=== PATIENT | female | born 1970 | race Caucasian/White ===

== ENCOUNTER 2019-11-27 08:16 | Emergency (ER) | payer OTHER, SELFPAY ==
[2019-11-27] VITALS (13 sets, daily range): BP systolic 120–147; BP diastolic 86–103; PULSE 62–74; RESP 11–22; TEMP 36.8; O2SAT 96–100
--- NOTE | ~2019-11-27 | CT_ITS ---
EXAMINATION: CT thoracic spine wo con DATE: 11/27/2019 09:33 INDICATION: Back pain. TECHNIQUE: Computed tomography (CT) of the thoracic spine was performed without intravenous contrast. Automated exposure control and iterative reconstruction technique were employed. The dose-length pro duct was 270.16 mGy-cm. COMPARISON: Chest 2 views 11/27/2019 FINDINGS: Bone alignment is normal. Vertebral body heights are normal. There is mildly decreased disc height from T5-T6 through T9-T10. There are endplate osteophytes at most levels. There is multilevel mild facet joint osteoarthritis. No neural foraminal stenosis or central canal stenosis. IMPRESSION: 1. Mild thoracic spondylosis. Reviewed, dictated and finalized at location A.
--- NOTE | ~2019-11-27 | XR_ITS ---
XR chest 2V DATE: 11/27/2019 09:36 INDICATION: Pleuritic pain, back pain. TECHNIQUE: PA and lateral views COMPARISON: 07/05/2017 PA and lateral chest FINDINGS: Normal heart size. No hilar or mediastinal enlargement. No pulmonary infiltrate or consolid ation, pleural effusion or pulmonary vascular congestion or pneumothorax. IMPRESSION: No active cardiopulmonary disease Reviewed, dictated and finalized at location B.
--- NOTE | ~2019-11-27 | CT_ITS ---
EXAMINATION: CT cervical spine wo con DATE: 11/27/2019 09:34 INDICATION: Back pain. Spinal stenosis. TECHNIQUE: Computed tomography (CT) of the cervical spine was performed without intravenous contrast. Automated exposure control and iterative reconstruction technique were employed. The dose-length pro duct was 118.29 mGy-cm. COMPARISON: None FINDINGS: Mild reversal of the normal lordosis in the lower cervical spine. Vertebral body heights are normal. Schmorl's node along the superior endplate of C7. No fracture. Moderate disc height loss at C5-C6 and C6-C7. Mild disc height loss at C4-C5. Cervical soft tissues are unremarkable. Small pneumatocele al marissa the paramediastinal left apical segment. The following disc levels are specifically discussed: C2-C3: The disc does not extend beyond the endplate margin. There is mild bilateral uncovertebral alonso nt osteoarthritis. There is severe bilateral facet joint osteoarthritis. There is no neural foraminal stenosis. There is no central canal stenosis. C3-C4: The disc does not extend beyond the endplate margin. There is mild right and moderate left unc overtebral joint osteoarthritis. There is moderate right and severe left facet joint osteoarthritis. There is mild left neural foraminal stenosis. There is no central canal stenosis. C4-C5: Disc is mildly bulging. There is mild bilateral uncovertebral joint osteoarthritis. There is s evere bilateral facet joint osteoarthritis. There is altered left and moderate right neural foraminal stenosis. There is no central canal stenosis. C5-C6: Posterior disc osteophyte complex. There is severe bilateral uncovertebral joint osteoarthriti s. There is moderate bilateral facet joint osteoarthritis. There is moderate left and mild to moderat e right neural foraminal stenosis. There is mild central canal stenosis. C6-C7: Posterior disc osteophyte complex. There is mild right and moderate to severe left uncovertebr al joint osteoarthritis. There is mild left and moderate right facet joint osteoarthritis. There is m ild bilateral neural foraminal stenosis. There is mild central canal stenosis. C7-T1: The disc does not extend beyond the endplate margin. There is no uncovertebral joint osteoarth ritis. There is mild left facet joint osteoarthritis. There is no neural foraminal stenosis. There is no central canal stenosis. IMPRESSION: 1. Moderate cervical spondylosis. No acute osseous abnormality. Reviewed, dictated and finalized at location A.
[2019-11-27 08:41] LABS: Add Urine Microscopic? NO; Appearance Urine Clear (Clear); Bilirubin Urine Negative (Negative); Blood Urine Negative (Negative); Color Urine Colorless (Yellow); Glucose Urine UA Negative (Negative); Ketones Urine Negative (Negative); Leukocyte Esterase Ur Negative LEU/UL (Negative); Nitrate Urine Negative (Negative); Protein Urine Negative (Negative); Specific Grav Ur 1.004 (1.001-1.035); Urobilinogen Urine Negative mg/dL (<2.0)
--- NOTE | 2019-11-27 08:52 | ED.BACK ---
HPI - Back Pain/Injury General Chief Complaint: Back Pain/Injury Stated Complaint: back pain, pain w/ inspiration Time Seen by Provider: 11/27/19 08:52 Source: patient and family Mode of arrival: ambulatory Limitations: no limitations History of Present Illness HPI Narrative: Patient is a 49-year-old female who presents for evaluation of back pain. Patient reports upper back pain that she notices most when she takes a deep breath. Pain is sharp, stabbing in nature and worse with inspiration. She denies frontal chest pain, cough, no current shortness of breath. Patient denies leg swelling or pain. No headache. Patient states she has a history of spinal stenosis but denies recent fall, injury or heavy lifting. No weakness in the upper or lower extremities. No hand numbness. No arm numbness. Pain is occasionally worse at movement, sometimes notices it at rest. Describes as a spasm type pain. Related Data Home Medications Medication Instructions Recorded Confirmed cholecalciferol (vitamin D3) 1,250 50,000 unit PO WEEKLY 07/21/19 mcg (50,000 unit) tablet lorazepam 2 mg tablet 2 mg PO DAILY PRN 07/21/19 Allergies Allergy/AdvReac Type Severity Reaction Status Date / Time sulfamethoxazole Allergy Mild Unknown Verified 11/27/19 08:43 cephalexin Allergy Unknown Unknown Verified 11/27/19 08:43 Penicillins Allergy Unknown Unknown Verified 11/27/19 08:43 sulfamethizole Allergy Unknown Unknown Verified 11/27/19 08:43 trimethoprim Allergy Unknown Unknown Verified 11/27/19 08:43 Review of Systems Review of Systems: Narrative: CONSTITUTIONAL: Denies fever CARDIOVASCULAR: Denies chest pain RESPIRATORY: Denies cough, reports pleuritic chest pain GASTROINTESTINAL: Denies abdominal pain, nausea or vomiting SKIN: Denies rash MUSCULOSKELETAL: Reports middle back pain NEUROLOGIC: Denies headache PMFSH Surgical History Surgical History History of endometrial ablation History of tubal ligation Previous section x 2 Family History Family History Father Hypertension Family history of chronic obstructive pulmonary disease Other Family history of malignant neoplasm of male breast Social History Social History Smoking status: Former smoker Second hand tobacco smoke exposure: No Smoking end date: 05/21/12 Alcohol intake: never Gender identity (if verbalized by the patient): Female Sexual Orientation (if Verbalized by the Patient): Straight or Heterosexual Exam Narrative: Exam Narrative: GENERAL: Awake, alert, conversant HEAD: Normocephalic, atraumatic. EYES: PERRLA and EOMI. ENT: Nares clear, no rhinorrhea or epistaxis. Mucous membranes moist. NECK: Supple. CHEST: No respiratory distress, breathing even and non labored THORAX: No cervical spinal tenderness midline or paraspinal, patient with midline thoracic pain and paraspinal pain of the left which partially reproduces pain, no stepoffs or deformities HEART: Regular rate, sinus rhythm ABDOMEN:Non distended, non tender EXTREMITIES: Normal range of motion. No edema. SKIN: Warm, dry, no rash. NEURO:No focal deficits. Alert and oriented x3 Course Vital Signs Vital signs: Vital Signs Temperature 36.8 C 11/27/19 08:25 Pulse Rate 67 11/27/19 08:25 Respiratory Rate 18 11/27/19 08:25 Blood Pressure 147/92 H 11/27/19 08:25 Pulse Oximetry 100 11/27/19 08:25 Temperature 36.8 C 11/27/19 08:25 Pulse Rate 68 11/27/19 10:39 Respiratory Rate 18 11/27/19 10:39 Blood Pressure 125/90 11/27/19 10:39 Pulse Oximetry 100 11/27/19 10:39 MDM - Back Pain/Injury MDM Narrative Medical decision making narrative: Patient presented for reproducible thoracic back pain, there was some type of pleuritic component, the EKG and troponin are reassuring. Troponin is undetected
--- NOTE | 2019-11-27 09:12 | ECG_ITS ---
Measurements Intervals Reading Rate: 64 P: 71 WY: 140 QRS: 40 QRSD: 76 T: 51 QT: 405 QTc: 420 Interpretive Statements SINUS RHYTHM DELAYED PRECORDIAL R/S TRANSITION LOW QRS VOLTAGE IN PRECORDIAL LEADS BORDERLINE ST-T WAVE ABNORMALITY- ANT/INF LEADS BASELINE ARTIFACT- I, III, AVL, V1 BORDERLINE ECG Electronically Signed On 11-27-2019 9:58:18 CDT by Thom Sousa D.O.
[2019-11-27] MEDS: KETOROLAC (*BKC) 60 MG/2 ML VIAL 30 MG IM (09:49)
[2019-11-27 09:52] LABS: Basophils Percent Auto 0.5 % (0.2-1.2); Eosinophils Absolute Auto 0.1 K/mm3 (0-0.3); Hematocrit 39.9 % (37.0-47.0); Hemoglobin 13.5 g/dL (12.0-15.0); Lymphocytes Absolute Auto 1.38 K/mm3 (0.9-3.2); Lymphocytes Percent Auto 34.2 % (18.3-44.2); Mean Corpuscular HGB Conc 33.8 g/dl (32-36); Mean Corpuscular Hemoglobin 32.2 pg (26-34); Mean Corpuscular Volume 95.2 fl (80-100); Mean Platelet Volume 9.9 fl (7.4-10.4); Monocytes Absolute Auto 0.3 K/mm3 (0.1-0.6); Monocytes Percent Auto 6.7 % (2.6-8.5); Neutrophils Absolute Auto 2.3 K/mm3 (1.3-6.7); Neutrophils Percent Auto 56.6 % (45.5-73.1); Platelet Count Result 255 k/mm3 (150-375); Red Blood Count 4.19 M/mm3 (4.2-5.4); Red Cell Distribution Width 12.8 % (11.5-14.5)
[2019-11-27 10:03] LABS: INR 0.9; Prothrombin Time 12.2 Seconds (11.1-14.7)
[2019-11-27 10:04] LABS: Partial Thromboplastin Time 27.9 SECONDS (22.3-36.8)
[2019-11-27 10:08] LABS: Blood Urea Nitrogen 11 mg/dL (7-17); Calcium 9.6 mg/dL (8.4-10.2); Carbon Dioxide 28 mmol/L (22-30); Chloride 104 mmol/L (98-107); Estimated CRCL calculation 97 ml/min; Estimated Glomerular Filt Rate > 60; Glucose 101 mg/dL (65-105); Sodium 138 mmol/L (137-145)
[2019-11-27 10:09] LABS: D Dimer 0.27 ug/mL (<0.48)
[2019-11-27 10:15] LABS: Potassium 3.8 mmol/L (3.4-5.0)
[2019-11-27 10:17] LABS: Troponin I < 0.012 ng/mL (0.000-0.034)
--- NOTE | 2019-11-27 11:08 | PC.NURSE ---
rn report given elisabeth
== END 2019-11-27 11:25 | disposition home or self-care (01) ==
PROVIDERS: Emergency Provider Emergency Medicine; PCP Internal Medicine Geriatric Medicine
DX: M54.6 Pain in thoracic spine (principal); Z87.891 Personal history of nicotine dependence; M47.812 Spondylosis without myelopathy or radiculopathy, cervical region; M47.814 Spondylosis without myelopathy or radiculopathy, thoracic region; R94.31 Abnormal electrocardiogram [ECG] [EKG]
CPT/HCPCS: 36415; 71046; 72125; 72128; 80048; 81003; 84484; 85025; 85380; 85610; 85730; 93005; 96372; 99284; J1885

== ENCOUNTER 2020-09-26 08:02 | Emergency (ER) | payer OTHER, SELFPAY ==
[2020-09-26 08:10] VITALS: BP 128/74; PULSE 104; RESP 18; TEMP 37.1; O2SAT 99
--- NOTE | 2020-09-26 08:32 | ED.HA ---
HPI - Headache General Chief Complaint: Upper Respiratory Infection Stated Complaint: headache,no apetite,hot and cold Time Seen by Provider: 09/26/20 08:14 Source: patient and RN notes reviewed Mode of arrival: ambulatory Limitations: no limitations History of Present Illness HPI Narrative: Patient presents today with a 2-day history of frontal headache, dizziness, fatigue, chills. She vomited once last night. Denies cough, body aches, known fever, sore throat, congestion, rhinorrhea. No one else in her household is ill. She does not work outside the home. She had her [employer] COVID-19 vaccine on August 26. She had been taking an allergy pill without relief. She when she woke up this morning her headache was a 7/10. Denies that this is the worst headache she is ever had. Denies history of migraines. MD elicited complaint: headache Related Data Home Medications Medication Instructions Recorded Confirmed rosuvastatin 5 mg tablet 5 mg PO DAILY 02/23/20 09/26/20 duloxetine 20 mg capsule,delayed 20 mg PO BID 07/26/20 09/26/20 release omega-3 fatty acids 500 mg capsule 500 mg PO DAILY 07/26/20 09/26/20 zinc 50 mg tablet 50 mg PO DAILY 07/26/20 09/26/20 Allergies Allergy/AdvReac Type Severity Reaction Status Date / Time sulfamethoxazole Allergy Mild Unknown Verified 09/26/20 08:07 cephalexin Allergy Unknown Unknown Verified 09/26/20 08:07 Penicillins Allergy Unknown Unknown Verified 09/26/20 08:07 sulfamethizole Allergy Unknown Unknown Verified 09/26/20 08:07 trimethoprim Allergy Unknown Unknown Verified 09/26/20 08:07 Review of Systems Review of Systems: Narrative: CONSTITUTIONAL: Denies body aches, fever. + Fatigue, chills EYES: Denies visual changes, redness, or discharge. ENT: Denies rhinorrhea, congestion, sore throat, or otalgia. CARDIOVASCULAR: Denies chest pain, palpitations, or edema. RESPIRATORY: Denies cough or dyspnea. GASTROINTESTINAL: Denies abdominal pain, nausea, vomiting, or diarrhea. GENITOURINARY: Denies dysuria or hematuria. SKIN: Denies rash, itching, or wounds. MUSCULOSKELETAL: Denies back pain, joint pain, or myalgia. NEUROLOGIC: Denies numbness, tingling, or weakness.+ Headache, dizziness PSYCH: Denies depression or anxiety. PMFSH Past Medical History Medical History Spinal stenosis Surgical History Surgical History History of endometrial ablation History of tubal ligation Previous section x 2 Family History Family History Father Hypertension Family history of chronic obstructive pulmonary disease Other Family history of malignant neoplasm of male breast Social History Social History Smoking status: Former smoker Second hand tobacco smoke exposure: No Smoking end date: 05/21/12 Alcohol intake: never Gender identity (if verbalized by the patient): Female Comments At time of signature, I have reviewed and agree with nursing past medical, surgical, social and family history unless otherwise noted. Please see nursing chart for further information. There is no relevant family history pertinent to the presenting complaint Exam Narrative: Exam Narrative: GENERAL: Well-appearing, well-nourished, and in no acute distress. HEAD: Normocephalic, atraumatic. EYES: EOMI. No redness or drainage. Conjunctivae normal. ENT: Mucous membranes pink and moist. Nares clear. No rhinorrhea. TMs normal bilaterally. Throat with slight erythema. No edema or exudate. Uvula midline. NECK: Normal AROM. Supple. No lymphadenopathy. CHEST: No respiratory distress. Clear to auscultation. HEART: Regular rate and rhythm. No murmur appreciated. Normal peripheral pulses. EXTREMITIES: Normal range of motion. No edema. SKIN: Warm, dry, no
== END 2020-09-26 09:05 | disposition home or self-care (01) ==
PROVIDERS: Emergency Provider Nurse Practitioner; PCP Internal Medicine Geriatric Medicine
DX: B34.9 Viral infection, unspecified (principal); Z20.822 Contact with and (suspected) exposure to COVID-19; Z87.891 Personal history of nicotine dependence; M48.00 Spinal stenosis, site unspecified
CPT/HCPCS: 87081; 87426; 87804; 87880; 99213; C9803; G0463

== ENCOUNTER 2020-11-19 00:56 | Day surgery (SDC) | payer OTHER, SELFPAY ==
[2020-11-04 10:39] VITALS: BMI 23.8
[2020-11-19 09:58] VITALS: BP 123/79; PULSE 74; RESP 18; TEMP 36.4; O2SAT 100
[2020-11-19] MEDS: LACTATED RINGERS 1,000 ML 150 ML IV CONT (10:01)
--- NOTE | 2020-11-19 10:49 | WPDANESEPPF ---
Anes - Initial Pre Proc Eval Procedure: Operation Date: 11/19/20 11:15 Proposed Procedures p Screening Colonoscopy - Osei Randall MD Date/Time: 11/19/20 10:49 Surgeon: Osei Randall MD Pre Op Diagnosis: neoplasm screening Patient Data Age: 50 Gender: F Height: 1.63 m Weight: 60.8 kg Last Vital Signs Temp 97.5 F L 11/19/20 09:58 Pulse 74 11/19/20 09:58 Resp 18 11/19/20 09:58 BP 123/79 11/19/20 09:58 Pulse Ox 100 11/19/20 09:58 Allergies Allergy/AdvReac Type Severity Reaction Status Date / Time sulfamethoxazole Allergy Mild Unknown Verified 11/19/20 09:57 cephalexin Allergy Unknown Unknown Verified 11/19/20 09:57 Penicillins Allergy Unknown Unknown Verified 11/19/20 09:57 sulfamethizole Allergy Unknown Unknown Verified 11/19/20 09:57 trimethoprim Allergy Unknown Unknown Verified 11/19/20 09:57 Home Medications Medication Instructions Recorded Confirmed Type estradiol 1 mg tablet 1 mg PO DAILY #90 tablet 07/21/19 11/04/20 Rx progesterone micronized 100 mg 100 mg PO QAM 90 Days #90 cap 07/21/19 11/04/20 Rx capsule rosuvastatin 5 mg tablet 5 mg PO DAILY 02/23/20 11/04/20 History duloxetine 20 mg capsule,delayed 20 mg PO DAILY 07/26/20 11/04/20 History release omega-3 fatty acids 500 mg capsule 500 mg PO DAILY 07/26/20 11/04/20 History zinc 50 mg tablet 50 mg PO DAILY 07/26/20 11/04/20 History Patient hx anesthesia problems: none Family hx anesthesia problems: none PMFSH Past Medical History Medical History (Updated 11/19/20 @ 10:49 by Flo Gagnon MD) COPD (chronic obstructive pulmonary disease) Hyperlipidemia Spinal stenosis Surgical History Surgical History History of endometrial ablation History of tubal ligation Previous section x 2 Family History Family History Father Hypertension Family history of chronic obstructive pulmonary disease Other Family history of malignant neoplasm of male breast Social History Social History Smoking packs per day: 1 Smoking cigarettes per day: 20.0 Years smoked: 20 Smoking pack-years: 20.00 Smoking status: Former smoker Tobacco type: cigarettes Second hand tobacco smoke exposure: No Smoking end date: 05/21/12 Alcohol intake: never Substance use: never Substance use type: does not use Living arrangements: with family Gender identity (if verbalized by the patient): Female Spiritual care concerns: No Anes - Eval Final PreProcedure Day of Procedure 11/19/20 10:49 Patient weight: normal Heart: regular rate and rhythm Lungs: clear to auscultation Airway: Mallampati scale class II Neurological: alert and oriented Last oral intake: >/= 8 hours ASA classification: II Emergent: no Anesthetic plan: proceed Anesthesia type and monitoring: general GIVS and standard monitoring Informed Consent: The patient's anesthetic plan and its attendant risks and benefits were discussed with the patient/family/POA. Questions were solicited and answers provided to the satisfaction of the patient/family/POA.
--- NOTE | 2020-11-19 11:23 | PM.HPGS ---
History of Present Illness History of Present Illness Consent: Risks, benefits, and alternatives have been discussed and questions answered. Patient agrees to proceed with procedure. Chief complaint: neoplasm screening Narrative: Nell Hurley is a 50 year old female here for first screening colonoscopy Review of Systems Constitutional: Constitutional: Denies headache(s) and Denies weakness Eyes: Eyes: Denies blurry vision ENT: Reports Normal hearing present, Denies headache(s) and Denies neck pain Cardiovascular: Cardiovascular: Denies chest pain and Denies dyspnea Respiratory: Respiratory: Denies dyspnea Gastrointestinal: Gastrointestinal: Reports no additional gastrointestinal complaints Genitourinary: Genitourinary: Denies dysuria Musculoskeletal: Musculoskeletal: Denies neck pain Integumentary/Breasts: Skin/Breast: Denies dry skin Neurologic: Reports Normal hearing present, Denies headache(s) and Denies weakness Psychiatric: Psychiatric: Denies anxiety Endocrine: Endocrine: Denies change in body appearance Hematologic/Lymphatic: Hematologic/Lymphatic: Denies easy bleeding Allergic/Immunologic: Allergic/Immunologic: Denies urticaria PMFSH Past Medical History Medical History (Updated 11/19/20 @ 10:49 by Flo Gganon MD) COPD (chronic obstructive pulmonary disease) Hyperlipidemia Spinal stenosis Surgical History Surgical History History of endometrial ablation History of tubal ligation Previous section x 2 Family History Family History Father Hypertension Family history of chronic obstructive pulmonary disease Other Family history of malignant neoplasm of male breast Social History Social History Smoking packs per day: 1 Smoking cigarettes per day: 20.0 Years smoked: 20 Smoking pack-years: 20.00 Smoking status: Former smoker Tobacco type: cigarettes Second hand tobacco smoke exposure: No Smoking end date: 05/21/12 Alcohol intake: never Substance use: never Substance use type: does not use Living arrangements: with family Gender identity (if verbalized by the patient): Female Spiritual care concerns: No Meds Home Medications and Allergies Home Medications Medication Instructions Recorded Confirmed Type estradiol 1 mg tablet 1 mg PO DAILY #90 tablet 07/21/19 11/04/20 Rx progesterone micronized 100 mg 100 mg PO QAM 90 Days #90 cap 07/21/19 11/04/20 Rx capsule rosuvastatin 5 mg tablet 5 mg PO DAILY 02/23/20 11/04/20 History duloxetine 20 mg capsule,delayed 20 mg PO DAILY 07/26/20 11/04/20 History release omega-3 fatty acids 500 mg capsule 500 mg PO DAILY 07/26/20 11/04/20 History zinc 50 mg tablet 50 mg PO DAILY 07/26/20 11/04/20 History Allergies Allergy/AdvReac Type Severity Reaction Status Date / Time sulfamethoxazole Allergy Mild Unknown Verified 11/19/20 09:57 cephalexin Allergy Unknown Unknown Verified 11/19/20 09:57 Penicillins Allergy Unknown Unknown Verified 11/19/20 09:57 sulfamethizole Allergy Unknown Unknown Verified 11/19/20 09:57 trimethoprim Allergy Unknown Unknown Verified 11/19/20 09:57 Vital Signs Vital Signs - 24 hr 11/19/20 09:58 Temperature 97.5 F L Pulse Rate 74 Respiratory Rate 18 Blood Pressure 123/79 Pulse Oximetry 100 Exam Const: General: comfortable and no acute distress HENMT: General nose exam: Normal nares present Eyes: General: appearance normal, both eyes and all related structures Neck: Neck: no JVD Resp: Auscultation: clear to auscultation bilaterally Cardio: Rate: regular rate Rhythm: regular rhythm GI: Inspection: non-distended GI Palp: Yes Soft to palpation Skin: General skin exam: normal color Neuro: General: gait normal Speech: normal speech Extrem: General: norm
[2020-11-19 11:57] VITALS: BP 112/72; PULSE 89; RESP 20; O2SAT 99
[2020-11-19 12:07] VITALS: BP 114/83; PULSE 83; RESP 16; O2SAT 100
[2020-11-19 12:17] VITALS: BP 133/97; PULSE 81; RESP 15; O2SAT 100
== END 2020-11-19 12:25 | disposition home or self-care (01) ==
PROVIDERS: PCP Internal Medicine Geriatric Medicine; Visit Provider Internal Medicine Gastroenterology
PROC: 0DJD8ZZ Inspection of Lower Intestinal Tract, Via Natural or Artificial Opening Endoscopic (ICD-10-PCS; CPT 45378; principal; 2020-11-19 11:15)
DX: Z12.11 Encounter for screening for malignant neoplasm of colon (principal); K64.8 Other hemorrhoids; D12.0 Benign neoplasm of cecum; D12.3 Benign neoplasm of transverse colon; K63.5 Polyp of colon; J44.9 Chronic obstructive pulmonary disease, unspecified; E78.5 Hyperlipidemia, unspecified; Z87.891 Personal history of nicotine dependence
CPT/HCPCS: 45380; 45385; 88305; J2001; J2704; J7120

== ENCOUNTER 2024-05-05 00:37 | Day surgery (SDC) | payer OTHER, SELFPAY ==
[2024-04-23 16:00] VITALS: BMI 20.8
[2024-05-05 12:14] VITALS: BP 129/78; PULSE 68; RESP 18; TEMP 36.5; O2SAT 99; BMI 20.7
[2024-05-05] MEDS: LACTATED RINGERS 1,000 ML 150 ML IV CONT (12:23)
--- NOTE | 2024-05-05 13:23 | PM.HPGS ---
History of Present Illness History of Present Illness Consent: Risks, benefits, and alternatives have been discussed and questions answered. Patient agrees to proceed with procedure. Chief complaint: personal hx of colon polyps Narrative: Nell Hurley is a 53 year old female with colon polyp in 2020 Review of Systems Review of Systems: All systems reviewed & are unremarkable except as noted in HPI and below PMFSH Past Medical History Medical History (Updated 05/05/24 @ 13:23 by Osei Randall MD) Adenomatous colon polyp COPD (chronic obstructive pulmonary disease) Hyperlipidemia Spinal stenosis Surgical History Surgical History (Reviewed 12/19/23 @ 09:19 by Amy Szymanski [facility]) History of tubal ligation History of endometrial ablation Previous section x 2 Family History Family History (Reviewed 12/19/23 @ 09:19 by Amy Szymanski [facility]) Father Hypertension Family history of chronic obstructive pulmonary disease Other Family history of malignant neoplasm of male breast Social History Social History (Reviewed 12/19/23 @ 09:19 by Amy Szymanski [facility]) Smoking packs per day: 1 Smoking cigarettes per day: 20.0 Years smoked: 20 Smoking pack-years: 20.00 Smoking status: Former smoker Tobacco type: cigarettes Second hand tobacco smoke exposure: No Smoking end date: 05/21/12 Alcohol intake: never Substance use: never Substance use type: does not use Lack of Transportation: No Lack of Food: Never True Current Housing: I Have Housing Concerned About Future Housing: No Difficulty Paying Gas/Electric Bills: No Difficulty Paying for Meds: No Currently Unemployed: No Education: High School Diploma/GED Difficulty w/ Childcare or Family Care: No Living arrangements: with family Gender identity (if verbalized by the patient): Female Sexual Orientation (if Verbalized by the Patient): Straight or Heterosexual Spiritual care concerns: No Meds Home Medications and Allergies Home Medications ?Medication ?Instructions ?Recorded ?Confirmed ?Type duloxetine 20 mg capsule,delayed 20 mg PO DAILY 07/26/20 05/05/24 History release metoprolol tartrate 25 mg tablet 12.5 mg PO BID 11/07/22 05/05/24 History aspirin 81 mg tablet,delayed 81 mg PO DAILY 12/19/23 05/05/24 History release cholecalciferol (vitamin D3) 50 50 mcg PO DAILY 12/19/23 05/05/24 History mcg (2,000 unit) capsule rosuvastatin 20 mg tablet 20 mg PO DAILY 12/19/23 05/05/24 History Estrogen And Testosterone Pellets 1 pellet RECTAL [id number] 04/23/24 05/05/24 History progesterone micronized 100 mg 100 mg PO DAILY 04/23/24 05/05/24 History capsule valacyclovir 500 mg tablet 500 mg PO DAILY 04/23/24 05/05/24 History Allergies Allergy/AdvReac Type Severity Reaction Status Date / Time sulfamethoxazole Allergy Mild Unknown Verified 05/05/24 12:12 cephalexin Allergy Unknown Unknown Verified 05/05/24 12:12 Penicillins Allergy Unknown Unknown Verified 05/05/24 12:12 sulfamethizole Allergy Unknown Unknown Verified 05/05/24 12:12 trimethoprim Allergy Unknown Unknown Verified 05/05/24 12:12 Vital Signs Vital Signs - 24 hr 05/05/24 12:14 Temperature 97.7 F Pulse Rate 68 Respiratory Rate 18 Blood Pressure 129/78 Pulse Oximetry 99 Oxygen Delivery Room Air Exam Const: General: comfortable and no acute distress HENMT: Face/Nose/Sinus: Normal nares present Eyes: General: appearance normal, both eyes and all related structures Neck: Neck: no JVD Resp: Auscultation: clear to auscultation bilaterally Cardio: Rate: regular rate Rhythm: regular rhythm GI: Inspection: non-distended GI Palp: Yes Soft to palpation Skin: General skin exam: normal color Neuro: General: gait normal Speech: normal speech Extrem: General: normal to inspection Psych: Mental Status: mental status grossly normal Assessment and Plan Assessment and plan (1) Adenomatous colon polyp: Code(s): D12.6 - Benign neoplasm of colon, unspecified Status: Acute Assessment and Plan: colonoscopy
--- NOTE | 2024-05-05 13:28 | WPDANESEPPF ---
Anes - Initial Pre Proc Eval Procedure: Operation Date: 05/05/24 13:30 Proposed Procedures p Colonoscopy - Osei Randall MD Date/Time: 05/05/24 13:28 Surgeon: Osei Randall MD Pre Op Diagnosis: personal hx of colon polyps Patient Data Age: 53 Gender: F Height: 1.63 m Weight: 54.8 kg Last Vital Signs Temp 36.5 C 05/05/24 12:14 Pulse 68 05/05/24 12:14 Resp 18 05/05/24 12:14 BP 129/78 05/05/24 12:14 Pulse Ox 99 05/05/24 12:14 O2 Del Method Room Air 05/05/24 12:14 Allergies Allergy/AdvReac Type Severity Reaction Status Date / Time sulfamethoxazole Allergy Mild Unknown Verified 05/05/24 12:12 cephalexin Allergy Unknown Unknown Verified 05/05/24 12:12 Penicillins Allergy Unknown Unknown Verified 05/05/24 12:12 sulfamethizole Allergy Unknown Unknown Verified 05/05/24 12:12 trimethoprim Allergy Unknown Unknown Verified 05/05/24 12:12 Home Medications ?Medication ?Instructions ?Recorded ?Confirmed ?Type duloxetine 20 mg capsule,delayed 20 mg PO DAILY 07/26/20 05/05/24 History release metoprolol tartrate 25 mg tablet 12.5 mg PO BID 11/07/22 05/05/24 History aspirin 81 mg tablet,delayed 81 mg PO DAILY 12/19/23 05/05/24 History release cholecalciferol (vitamin D3) 50 50 mcg PO DAILY 12/19/23 05/05/24 History mcg (2,000 unit) capsule rosuvastatin 20 mg tablet 20 mg PO DAILY 12/19/23 05/05/24 History Estrogen And Testosterone Pellets 1 pellet RECTAL [id number] 04/23/24 05/05/24 History progesterone micronized 100 mg 100 mg PO DAILY 04/23/24 05/05/24 History capsule valacyclovir 500 mg tablet 500 mg PO DAILY 04/23/24 05/05/24 History Patient hx anesthesia problems: none Family hx anesthesia problems: none Results Review: All pre-operative results and documents have been reviewed as part of the pre-operative evaluation. [facility] Past Medical History Medical History Adenomatous colon polyp COPD (chronic obstructive pulmonary disease) Hyperlipidemia Spinal stenosis Surgical History Surgical History History of tubal ligation History of endometrial ablation Previous section x 2 Family History Family History Father Hypertension Family history of chronic obstructive pulmonary disease Other Family history of malignant neoplasm of male breast Social History Social History Smoking packs per day: 1 Smoking cigarettes per day: 20.0 Years smoked: 20 Smoking pack-years: 20.00 Smoking status: Former smoker Tobacco type: cigarettes Second hand tobacco smoke exposure: No Smoking end date: 05/21/12 Alcohol intake: never Substance use: never Substance use type: does not use Lack of Transportation: No Lack of Food: Never True Current Housing: I Have Housing Concerned About Future Housing: No Difficulty Paying Gas/Electric Bills: No Difficulty Paying for Meds: No Currently Unemployed: No Education: High School Diploma/GED Difficulty w/ Childcare or Family Care: No Living arrangements: with family Gender identity (if verbalized by the patient): Female Sexual Orientation (if Verbalized by the Patient): Straight or Heterosexual Spiritual care concerns: No Comments CAD, htn, COPD, emphysema, spinal stenosis neck Anes - Eval Final PreProcedure Day of Procedure 05/05/24 13:28 Patient weight: normal Heart: regular rate and rhythm Lungs: normal air movement Airway: Mallampati scale class II Neurological: alert and oriented Last oral intake: >/= 8 hours ASA classification: II Emergent: no Anesthetic plan: proceed Anesthesia type and monitoring: general GIVS and standard monitoring Results Review: All pre-operative results and documents have been reviewed as part of the pre-operative evaluation. Informed Consent: The patient's anesthetic plan and its attendant risks and benefits were discussed with the patient/family/POA. Questions were solicited and answers provided to the satisfaction of the patient/family/POA.
[2024-05-05 13:54] VITALS: BP 119/72; PULSE 72; RESP 25; O2SAT 100
[2024-05-05 14:04] VITALS: BP 134/83; PULSE 66; RESP 19; O2SAT 100
[2024-05-05 14:14] VITALS: BP 133/77; PULSE 62; RESP 20; O2SAT 100
--- OUTSIDE RECORDS SUMMARY | 2024-05-10 09:39 | XMS_ITS | CONTINUITY OF CARE DOCUMENT ---
Author Name katyash angelica Address Unknown Organization [facility] Address [address] [place] [address] Phone [phone] Care Team Providers Care Workforce Management Analyst Name Role Phone Neo Yee DO Unavailable SHAHNAZ BARNHART, MIKEY Unavailable [phone] MIKEY CHRISTIE MD Unavailable [phone] PROBLEMS Condition Status Date Provider Notes Chest pain-type to be determined completed - Neo Yee DO Family History of Hypertension: active ? Neo Yee DO Anxiety situational completed - Neo Yee DO COPD completed - Neo Yee DO CAD active Neo Yee DO Hypercholesterolemia active Neo Yee DO Tobacco abuse- hx of active Neo Yee DO Chest pain-type to be determined completed - Neo Yee DO ENCOUNTERS Date Type Provider Location Encounter Diag nosis - In-person encounter Office Visit Neo Ambrizvey Office - In-person encounter Office Visit Neo Yee DO [facility] Office - In-person encounter Office Visit Neo Yee DO [employer] Office - In-person encounter Office Visit Neo Mckenna Office - In-person encounter Office Visit Neo Mckenna Office Anxiety situationalChest pain-type to be determined - In-person encounter Office Visit Neo Mckenna Office - In-person encounter Office Visit Neo Mckenna Office - In-person encounter Office Visit Neo Mckenna Office Tobacco abuse- hx of - In-person encounter Office Visit Neo Mckenna Office Chest pain-type to be determinedCOPD - In-person encounter Office Visit Neo Mckenna Office CADHypercholesterolemia - In-person encounter Office Visit Neo Pederson Office Family History of Hypertension: VITAL SIGNS Date Observation Value Provider Body Mass Index (Ratio) 21.45 kg/m2 Robert Yee DO blood pressure, diastolic 80 mm[Hg] Daly nkLogic blood pressure, systolic 120 mm[Hg] Abril kLogic blood pressure, cuff size regular Ke rri Sharon blood pressure, diastolic 80 mm[Hg] Ray rri Sharon blood pressure, systolic 120 mm[Hg] Kimmie Herrera oxygen saturation, oximetry 99 % Archana Herrera pulse rate 56 /min Archana Dunaway [facility] weight E&M 125 [lb_av] Archana Dunaway er height E&M 64 [in_i] Archana Dunaway Body Mass Index (Ratio) 23.00 kg/m2 [facility] Jose Yee pulse rate 61 /min Zelda Brown respiratory rate E&M 18 /min Zelda Brown blood pressure, diastolic 92 mm[Hg] Jodie Brown blood pressure, systolic 119 mm[Hg] She ruth Brown oxygen saturation, oximetry 97 % Zelda Brown weight E&M 134 [lb_av] Zelda Brown blood pressure, cuff size regular jannette Brown height E&M 64 [in_i] Zelda Brown Body Mass Index (Ratio) 23.34 kg/m2 [facility] Jose Yee blood pressure, diastolic 84 mm[Hg] nkLog blood pressure, systolic 118 mm[Hg] [facility] 66 [facility]min Zelda Brown blood pressure, diastolic 84 mm[Hg] jannette Brown blood pressure, systolic 118 mm[Hg] She ruth Brown oxygen saturation, oximetry 98 % Zelda Brown respiratory rate E&M 20 /min Zelda Brown blood pressure, cuff size regular jannette Brown weight E&M 136 [lb_av] Zelda Brown height E&M 64 [in_i] Zelda Brown Body Mass Index (Ratio) 23.17 kg/m2 [facility], diastolic 89 mm[Hg] An varsha Yoon blood pressure, systolic 124 mm[Hg] Any ludmila Yoon pulse rate 65 /min Lenkaludmila Yoon weight E&M 135 [lb_av] Lenkaludmila Yoon oxygen saturation, oximetry 96 % Lenkaludmila Yoon blood pressure, cuff size large An varsha Yoon height E&M 64 [in_i] Lenkaludmila Yoon Body Mass Index (Ratio) 24.37 kg/m2 Prad rosibel Jose Joselito DO blood pressure, diastolic 70 mm[Hg] Li nkLogic blood pressure, systolic 128 mm[Hg] Abril kLogic blood pressure, diastolic 70 mm[Hg] Ma rsha O'Eligio blood pressure, systolic 128 mm[Hg] Angela sha O'Eligio oxygen saturation, oximetry 95 % Jennifer O'Eligio respiratory rate E&M 16 /min Jennifer O'Eligio pulse rate 69 /min Jennifer O'Eligio blood pressure, resting No Carpenter smalls O'Eligio weight E&M 142 [lb_av] Jennifer O'Eligio height E&M 64 [in_i] Jennifer O'Eligio Body Mass Index (Ratio) 20.08 kg/m2 Prad eedevonte Yee DO blood pressure, cuff size regular Cr noni Yoon blood pressure, diastolic 80 mm[Hg] Cr noni Yoon blood pressure, systolic 120 mm[Hg] Cry tonya Yoon oxygen saturation, oximetry 98 % Niokle Yoon respiratory rate E&M 17 /min Nikole Yoon pulse rate 72 /min Nikole chan weight E&M 117 [lb_av] Nikole Abdalla s height E&M 64 [in_i] Nikole Abdalla s Body Mass Index (Ratio) 21.45 kg/m2 Prayovany Yee DO blood pressure, diastolic 80 mm[Hg] Ki llnathanael Rhodes blood pressure, systolic 100 mm[Hg] Jeronimo vincent Rhodes oxygen saturation, oximetry 98 % Pelkie Rhodes respiratory rate E&M 16 /min Pelkie Rhodes pulse rate 77 /min Asad Rhodes weight E&M 125 [lb_av] [facility] [in_i] [facility] Body Mass Index (Ratio) 25.06 kg/m2 [facility]Formerly [facility] blood pressure, diastolic 70 mm[Hg] Te derrick Kenna blood pressure, systolic 118 mm[Hg] Dinesh william Kenna oxygen saturation, oximetry 98 % [facility] pulse rate 76 /min [facility] respiratory rate E&M 18 /min [facility] weight E&M 146 [lb_av] [facility] height E&M 64 [in_i] [facility] Body Mass Index (Ratio) 23.69 kg/m2 [facility] blood pressure, diastolic 70 mm[Hg] Al michelle [facility] blood pressure, systolic 106 mm[Hg] Vicente mahsa [facility] oxygen saturation, oximetry 97 % [facility] respiratory rate E&M 15 /min [facility] pulse rate 66 /min [facility] weight E&M 138 [lb_av] [facility] height E&M 64 [in_i] [facility] Body Mass Index (Ratio) 23.82 kg/m2 [facility] blood pressure, resting No Elaine pappas Dustin blood pressure, cuff size regular Te pillo Chan blood pressure, diastolic 80 mm[Hg] Te pillo Villegashley blood pressure, systolic 122 mm[Hg] James Chan oxygen saturation, oximetry 98 % Neelam Chan respiratory rate E&M 18 /min Neelam Chan pulse rate 80 /min Neelam Villegashley height E&M 64 [in_i] Neelam Dustin weight E&M 138.8 [lb_av] Neelam Echeverria y ALLERGIES Allergy Name Onset Date Reaction Criticality Status KEFLEX High Criticality active PENICILLIN High Criticality active SEPTRA High Criticality active RESULTS Date Observation Value Provider Reference Range Interpretation Location alanine aminotransferase (SGPT), serum 37 1/L LinkLogic 6-29 High aspartate aminotransferase (SGOT), serum 27 1/L LinkLogic 10-35 Normal alkaline phosphatase, serum 65 1/L LinkLogic 37-153 Normal bilirubin, serum, total 0.3 mg/dL LinkLogic 0.2-1.2 Normal albumin/globulin ratio, serum 2.0 (calc) LinkLogic 1.0-2.5 Normal globulins, serum, total 2.3 G/DL (CALC) LinkLogic 1.9-3.7 Normal albumin, serum 4.6 g/dL LinkLogic 3.6-5.1 Normal protein, total, serum 6.9 g/dL LinkLogic 6.1-8.1 Normal calcium, serum 9.5 mg/dL LinkLogic 8.6-10.4 Normal carbon dioxide, venous blood 26 mmol/L Link[facility]ic 20-32 Normal chloride, serum 104 mmol/L Link[facility]ic 98-110 Normal potassium, serum 4.5 mmol/L LinkLogic 3.5-5.3 Normal sodium, serum 138 mmol/L LinkLogic 135-146 Normal urea nitrogen/creatinine ratio, serum SEE NOTE: (calc) LinkLogic 6-22 creatinine, serum 0.54 mg/dL LinkLogic 0.50-1.03 Normal urea nitrogen, blood 12 mg/dL LinkLogic 7-25 Normal blood glucose, random 95 mg/dL LinkLogic 65-99 Normal cholesterol, non-HDL, total 82 MG/DL (CALC) LinkLogic <130 Normal cholesterol/HDL ratio, serum, percent 2.1 (calc) LinkLogic <5.0 Normal LDL cholesterol, serum 68 MG/DL (CALC) LinkLogic Normal triglyceride, serum, fasting 59 mg/dL LinkLogic <150 Normal HDL cholesterol, serum 72 mg/dL LinkLogic > OR = 50 Normal cholesterol, serum 154 mg/dL LinkLogic <200 Normal alanine aminotransferase (SGPT), serum 35 1/L LinkLogic 6-29 High aspartate aminotransferase (SGOT), serum 26 1/L LinkLogic 10-35 Normal alkaline phosphatase, serum 59 1/L LinkLogic 37-153 Normal bilirubin, serum, total 0.7 mg/dL LinkLogic 0.2-1.2 Normal albumin/globulin ratio, serum 2.0 (calc) LinkLogic 1.0-2.5 Normal globulins, serum, total 2.2 G/DL (CALC) LinkLogic 1.9-3.7 Normal albumin, serum 4.5 g/dL LinkLogic 3.6-5.1 Normal protein, total, serum 6.7 g/dL LinkLogic 6.1-8.1 Normal calcium, serum 9.6 mg/dL LinkLogic 8.6-10.4 Normal carbon dioxide, venous blood 27 mmol/L LinkLogic 20-32 Normal chloride, serum 103 mmol/L LinkLogic 98-110 Normal potassium, serum 4.3 mmol/L LinkLogic 3.5-5.3 Normal sodium, serum 138 mmol/L LinkLogic 135-146 Normal urea nitrogen/creatinine ratio, serum SEE NOTE: (calc) LinkLogic 6-22 creatinine, serum 0.57 mg/dL LinkLogic 0.50-1.03 Normal urea nitrogen, blood 9 mg/dL LinkLogic 7-25 Normal blood glucose, random 85 mg/dL LinkLogic 65-99 Normal cholesterol, non-HDL, total 56 MG/DL (CALC) LinkLogic <130 Normal cholesterol/HDL ratio, serum, percent 1.9 (calc) LinkLogic <5.0 Normal LDL cholesterol, serum 43 MG/DL (CALC) LinkLogic Normal triglyceride, serum, fasting 57 mg/dL LinkLogic <150 Normal HDL cholesterol, serum 62 mg/dL LinkLogic > OR = 50 Normal cholesterol, serum 118 mg/dL LinkLogic <200 Normal C-reactive protein, by highly sensitive test <0.3 mg/L LinkLogic Normal alanine aminotransferase (SGPT), serum 35 1/L LinkLogic 6-29 High aspartate aminotransferase (SGOT), serum 25 1/L LinkLogic 10-35 Normal alkaline phosphatase, serum 54 1/L LinkLogic 37-153 Normal bilirubin, serum, total 0.5 mg/dL LinkLogic 0.2-1.2 Normal albumin/globulin ratio, serum 2.1 (calc) LinkLogic 1.0-2.5 Normal globulins, serum, total 2.2 G/DL (CALC) LinkLogic 1.9-3.7 Normal albumin, serum 4.6 g/dL LinkLogic 3.6-5.1 Normal protein, total, serum 6.8 g/dL LinkLogic 6.1-8.1 Normal calcium, serum 9.6 mg/dL LinkLogic 8.6-10.4 Normal carbon dioxide, venous blood 27 mmol/L LinkLogic 20-32 Normal 2023/09 /13 chloride, serum 102 mmol/L LinkLogic 98-110 Normal potassium, serum 4.5 mmol/L LinkLogic 3.5-5.3 Normal sodium, serum 136 mmol/L LinkLogic 135-146 Normal urea nitrogen/creatinine ratio, serum SEE NOTE: (calc) LinkLogic 6-22 creatinine, serum 0.51 mg/dL LinkLogic 0.50-1.03 Normal urea nitrogen, blood 10 mg/dL LinkLogic 7-25 Normal blood glucose, random 89 mg/dL LinkLogic 65-99 Normal cholesterol, non-HDL, total 89 MG/DL (CALC) LinkLogic <130 Normal cholesterol/HDL ratio, serum, percent 2.3 (calc) LinkLogic <5.0 Normal LDL cholesterol, serum 74 MG/DL (CALC) LinkLogic Normal triglyceride, serum, fasting 70 mg/dL LinkLogic <150 Normal HDL cholesterol, serum 67 mg/dL LinkLogic > OR = 50 Normal cholesterol, serum 156 mg/dL LinkLogic <200 Normal hemoglobin A1C, blood, as % of total hemoglobin 5.4 % OF TOTAL HGB LinkLogic <5.7 Normal cholesterol, non-HDL, total 80 MG/DL (CALC) LinkLogic <130 Normal cholesterol/HDL ratio, serum, percent 2.3 (calc) LinkLogic <5.0 Normal LDL cholesterol, serum 64 MG/DL (CALC) LinkLogic Normal triglyceride, serum, fasting 84 mg/dL LinkLogic <150 Normal HDL cholesterol, serum 60 mg/dL LinkLogic > OR = 50 Normal cholesterol, serum 140 mg/dL LinkLogic <200 Normal lipoprotein, beta, serum, point, quantitative, calculated 61 mg/dL LinkLogic 0-99 very low density lipoproteins 11 mg/dL LinkLogic 5-40 HDL cholesterol, serum 72 mg/dL LinkLogic >39 triglyceride, serum, random 54 mg/dL LinkLogic 0-149 cholesterol, serum 144 mg/dL LinkLogic 717-185 7008/01 /18 alanine aminotransferase (SGPT), serum 75 1/L LinkLogic 0-32 High aspartate aminotransferase (SGOT), serum 39 1/L LinkLogic 0-40 alkaline phosphatase, serum 73 1/L LinkLogic 39-117 bilirubin, serum, total 0.5 mg/dL LinkLogic 0.0-1.2 albumin/globulin ratio, serum 2.1 LinkLogic 1.2-2.2 globulin, serum 2.3 LinkLogic 1.5-4.5 albumin, serum 4.8 g/dL LinkLogic 3.5-5.5 protein, total, serum 7.1 g/dL LinkLogic 6.0-8.5 calcium, serum 9.8 mg/dL LinkLogic 8.7-10.2 carbon dioxide, venous blood 26 mmol/L LinkLogic 18-29 chloride, serum 101 mmol/L LinkLogic 96-106 potassium, serum 4.4 mmol/L LinkLogic 3.5-5.2 sodium, serum 145 mmol/L LinkLogic 134-144 High urea nitrogen/creatinine ratio, serum 19 LinkLogic 9-23 eGFR if not 105 mL/min/{1.73_ m2} LinkLogic >59 creatinine, serum 0.67 mg/dL LinkLogic 0.57-1.00 urea nitrogen, blood 13 mg/dL LinkLogic 6-24 blood glucose, random 60 mg/dL LinkLogic 65-99 Low NT-pro BNP 37 LinkLogic C-reactive protein, serum <0.10 mg/dL LinkLogic <0.80 Normal prothrombin time (patient) 10.5 s LinkLogic 9.0-11.5 Normal international normalized ratio (INR) 1.0 LinkLogic Normal basophils as percent of blood leukocytes 0.4 % LinkLogic Normal eosinophils as percent of blood leukocytes 3.2 % LinkLogic Normal monocyte count, blood 5.4 % LinkLogic Normal lymphocyte count, blood 36.4 % LinkLogic Normal neutrophils as percent of blood leukocytes 54.6 % LinkLogic Normal basophils, absolute, manual 16 cells/mcL LinkLogic 0-200 Normal eosinophils, absolute, manual 131 cells/mcL LinkLogic 15-500 Normal monocytes, absolute, manual 221 cells/mcL LinkLogic 200-950 Normal lymphocytes, absolute 1492 CELLS/UL LinkLogic 850-3900 Normal Absolute Neutrophil count 2239 cells/mcL LinkLogic 0517-5377 Normal mean platelet volume 8.9 fL LinkLogic 7.5-12.5 Normal platelet count 293 THOUSAND/UL LinkLogic 140-400 Normal red blood cell distribution width 13.4 % LinkLogic 11.0-15.0 Normal mean corpuscular hemoglobin concentration, RBC 33.0 G/DL LinkLogic 32.0-36.0 Normal mean corpuscular hemoglobin, RBC 31.0 pg LinkLogic 27.0-33.0 Normal mean corpuscular volume, RBC 94.0 fL LinkLogic 80.0-100.0 Normal hematocrit, blood 40.4 % LinkLogic 35.0-45.0 Normal hemoglobin electrophoresis, blood 13.3 LinkLogic 11.7-15.5 Normal erythrocyte (RBC) count 4.30 MILLION/UL LinkLogic 3.80-5.10 Normal leukocyte (white blood cells) count, blood 4.1 THOUSAND/UL LinkLogic 3.8-10.8 Normal calcium, serum 9.5 mg/dL LinkLogic 8.6-10.2 Normal carbon dioxide, venous blood 23 mmol/L LinkLogic 20-31 Normal chloride, serum 106 mmol/L LinkLogic 98-110 Normal potassium, serum 4.4 mmol/L LinkLogic 3.5-5.3 Normal sodium, serum 138 mmol/L LinkLogic 135-146 Normal urea nitrogen/creatinine ratio, serum NOT APPLICABLE (calc) LinkLogic 6- Estimated Glomerular Filtration Rate (calc) 129 mL/min/{1.73_ m2} LinkLogic > OR = 60 Normal creatinine, serum 0.56 mg/dL LinkLogic 0.50-1.10 Normal urea nitrogen, blood 15 mg/dL LinkLogic 7-25 Normal blood glucose, random 88 mg/dL LinkLogic 65-99 Normal cholesterol, non-HDL, total 132 MG/DL (CALC) LinkLogic Normal cholesterol/HDL ratio, serum, percent 2.7 (calc) LinkLogic < OR = 5.0 Normal LDL cholesterol, serum 119 MG/DL (CALC) LinkLogic <130 Normal triglyceride, serum, fasting 64 mg/dL LinkLogic <150 Normal HDL cholesterol, serum 76 mg/dL LinkLogic > OR = 46 Normal cholesterol, serum 208 mg/dL LinkLogic 125-200 High HISTORY OF MEDICATION USE Medication Status Instructions Dates Provider Indications Com ments metoprolol tartrate 25 mg tablet active TAKE ONE HALF TABLET BY MOUTH TWICE A DAY Neo Yee DO rosuvastatin 20 mg tablet active TAKE ONE TABLET BY MOUTH EVERY NIGHT Neo Yee DO metoprolol tartrate 25 mg tablet completed TAKE ONE TABLET BY MOUTH TWICE A DAY - Neo Yee DO Crestor 20 mg tablet completed Take 1 tablet by mouth every night - Kati Rushing Crestor 10 mg tablet completed Take 1 tablet by mouth every night - Neo Yee DO metoprolol tartrate 25 mg tablet completed Take 1 tablet by mouth twice a day - Kati Rushing Crestor 10 mg tablet completed Take 1 tablet by mouth once a day - Neo Yee DO NITROSTAT 0.4 MG SUBLINGUAL TABLET SUBLINGUAL completed One tab. under tongue as needed. May repeat twice in 10 minutes. - Neo Yee DO TOPROL XL 25 MG ORAL TABLET EXTENDED RELEASE 24 HOUR completed ONE TAB DAILY - Marty Carreon aspirin 81 mg tablet,delayed release (DR/EC) active 1 tablet by mouth once a day Neo Yee DO progesterone micronized 200 mg capsule active Take 1 tablet by mouth once a day Neo Yee DO estradiol 1 mg tablet completed Take 1 tablet by mouth once a day - Archana Herrera Ativan 0.5 mg tablet active 1 tablet by mouth every six hours as needed Neo Yee DO SOCIAL HISTORY Date Observation Value Provider smoking status Never smoker Zleda Brown smoking status Never smoker Zelda Brown smoking status Former smoker Lenka chan smoking, year quit 2013 Lenka Levin iams cigarette use yes Lenka Yoon smoking, year quit 2013 Jennifer Gabriel' Eligio cigarette use yes Jennifer Gabriel'Eligio smoking status Former smoker Jennifer rizzo smoking status Former smoker Crystal Will iams smoking, year quit 2013 Asad I queram cigarette use yes Pelkie Rhodes smoking status Former smoker Pelkie Ingr am number of grandchildren Neo Chan smoking, year quit 2013 Neelam ignacio cigarette use yes Neelam beaver smoking status Former smoker Neelam Neto costay FUNCTIONAL STATUS Date Observation Value Provider HRA, CV Assess/Plan, Angina (inactive) Management Plan continue current therapy Neo Jose Yee DO HRA, CV Assess/Plan, Angina (inactive) Management Plan continue current therapy Neo Jose Yee DO HRA, CV Assess/Plan, Angina (inactive) Management Plan continue current therapy Neo Jose Yee DO HRA, CV Assess/Plan, Angina (inactive) Management Plan continue current therapy Neo Jose Yee DO HRA, CV Assess/Plan, Angina (inactive) Management Plan continue current therapy Neo Jose Yee DO HRA, CV Assess/Plan, Angina (inactive) Management Plan continue current therapy, antianginal therapy Neo Jose Yee DO FAMILY HISTORY Family Member Condition Father Family History of Hy pertension: INSURANCE PROVIDERS Payer name Policy type / Coverage type [employer] ID [employer] [id number] ADVANCE DIRECTIVES Name Date DISCUSSED - NO DECISION MADE TREATMENT PLAN Date Name Performer [id number],C, L abs 06/07 LDL 61, HDL 72. Cr .67 L DL 174 in 11/09 (was off statin) h tim LDL goal < 70 L abs 02/09: LDL 64 Trigs 84, a1c 5.4% * wants q6mo appt for now L abs 02/10: LDL 74 Trigs 70, LPa 84, chem ok, LFTs ok, hscrp <.3 c restor to 20 Her updated medication list for this problem includes: Crestor 10 Mg Tablet (Rosuvastatin) ..... Take 1 tablet by mouth every night Neo Jose Yee [id number],C, q uit Neosharon Yee DO [id number],C, m ild up to 30% lad on cath, trivial rca and cx cath 10/18/16 C oronary ca score 2021: 564, LAD 224, Cx 209, RCA 130 a spirin s tatin n ml ef 22 n eg nuc 22 m editerranean diet l ow dose beta manny d enies chest pain/angina * wants q6mo appt for now Neo Yee [id number],C, q uit Neo Yee [id number],C, L abs 06/07 LDL 61, HDL 72. Cr .67 L DL 174 in 11/09 (was off statin) h tim LDL goal < 70 L abs 02/09: LDL 64 Trigs 84, a1c 5.4% * wants q6mo appt for now r epeat flp Her updated medication list for this problem includes: Crestor 10 Mg Oral Tablet (Rosuvastatin calcium) ..... Take one tablet by mouth daily Neo Yee [id number],C, m ild up to 30% lad on cath, trivial rca and cx cath 10/18/16 C oronary ca score 2021: 564, LAD 224, Cx 209, RCA 130 a spirin s tatin n ml ef 22 n eg nuc 22 m editerranean diet l ow dose beta manny * wants q6mo appt for now Neo Yee [id number],C, L abs 06/07 LDL 61, HDL 72. Cr .67 L DL 174 in 11/09 (was off statin) h tim LDL goal < 70 L abs 02/09: LDL 64 Trigs 84, a1c 5.4% * wants q6mo appt for now r epeat flp prior to next visit [facility] Her updated medication list for this problem includes: Crestor 10 Mg Oral Tablet (Rosuvastatin calcium) ..... Take one tablet by mouth daily Neo Yee [id number],C, m ild up to 30% lad on cath, trivial rca and cx cath 10/18/16 C oronary ca score 2021: 564, LAD 224, Cx 209, RCA 130 a spirin s tatin n ml ef 22 n eg nuc 22 m editerranean diet l ow dose beta manny * wants q6mo appt for now Neo Yee DO [id number],C, L abs 06/07 LDL 61, HDL 72. Cr .67 L DL 174 in 11/09 (was off statin) r esume crestor 10 for now, may need 20, may need zetia h tim LDL goal < 70 r echeck in 2 months Neo Yee [id number],C, m ild up to 30% lad on cath, trivial rca and cx cath 10/18/16 C oronary ca score 2021: 564, LAD 224, Cx 209, RCA 130 a spirin s tatin n ml ef in past p francine ex nuc to risk stratify r esume statin m editerranean diet l ow dose beta manny for now Neo Yee DO Cardiology: L abs 06/07 LDL 61, HDL 72. Cr .67 L DL 174 in 11/09 (was off statin) h tim LDL goal < 70 L abs 02/09: LDL 64 Trigs 84, a1c 5.4% * wants q6mo appt L abs 02/10: LDL 74 Trigs 70, LPa 84, chem ok, LFTs ok, hscrp <.3 c restor to 20 L abs 08/11: LDL 43 Trigs 57, chem ok, LFTs ok Her updated medication list for this problem includes: Crestor 20 Mg Tablet (Rosuvastatin) ..... Take 1 tablet by mouth every night Neo Yee Cardiology: m ild up to 30% lad on cath, trivial rca and cx cath 10/18/16 C oronary ca score 2021: 564, LAD 224, Cx 209, RCA 130 a spirin s tatin n ml ef 22 n eg nuc 22 m editerranean diet l ow dose beta manny cut to 12.5 bid. d enies chest pain/angina This visit has been a part of the consistent, comprehensive, and ongoing management of the chronic medical condition(s) listed above for patient. Neo Yee DO Cardiology: q uit Neonaya Yee Cardiology: L abs 06/07 LDL 61, HDL 72. Cr .67 L DL 174 in 11/09 (was off statin) h tim LDL goal < 70 L abs 02/09: LDL 64 Trigs 84, a1c 5.4% * wants q6mo appt L abs 02/10: LDL 74 Trigs 70, LPa 84, chem ok, LFTs ok, hscrp <.3 c restor to 20 L abs 08/11: LDL 43 Trigs 57, chem ok, LFTs ok Her updated medication list for this problem includes: Crestor 20 Mg Tablet (Rosuvastatin) ..... Take 1 tablet by mouth every night Neosharon Yee Cardiology: m ild up to 30% lad on cath, trivial rca and cx cath 10/18/16 C oronary ca score 2021: 564, LAD 224, Cx 209, RCA 130 a spirin s tatin n ml ef 22 n eg nuc 22 m editerranean diet l ow dose beta manny d enies chest pain/angina * wants q6mo appt for now [facility] Jose Yee Cardiology: L abs 06/07 LDL 61, HDL 72. Cr .67 L DL 174 in 11/09 (was off statin) h tim LDL goal < 70 L abs 02/09: LDL 64 Trigs 84, a1c 5.4% * wants q6mo appt for now L abs 02/10: LDL 74 Trigs 70, LPa 84, chem ok, LFTs ok, hscrp <.3 c restor to 20 Her updated medication list for this problem includes: Crestor 10 Mg Tablet (Rosuvastatin) ..... Take 1 tablet by mouth every night [facility] Jose Yee Cardiology: [facility] uit [facility] Cardiology: m ild up to 30% lad on cath, trivial rca and cx cath 10/18/16 C oronary ca score 2021: 564, LAD 224, Cx 209, RCA 130 a spirin s tatin n ml ef 22 n eg nuc 22 m editerranean diet l ow dose beta manny d enies chest pain/angina * wants q6mo appt for now Neo Jose Joselito Cardiology: q uit Neo Yee DO Cardiology: L abs 06/07 LDL 61, HDL 72. Cr .67 L DL 174 in 11/09 (was off statin) h tim LDL goal < 70 L abs 02/09: LDL 64 Trigs 84, a1c 5.4% * wants q6mo appt for now r epeat flp H er updated medication list for this problem includes: Crestor 10 Mg Oral Tablet (Rosuvastatin calcium) ..... Take one tablet by mouth daily Neo Yee DO Cardiology: m ild up to 30% lad on cath, trivial rca and cx cath 10/18/16 C oronary ca score 2021: 564, LAD 224, Cx 209, RCA 130 a spirin s tatin n ml ef 22 n eg nuc 22 m editerranean diet l ow dose beta manny * wants q6mo appt for now Neo Yee Cardiology: L abs 06/07 LDL 61, HDL 72. Cr .67 L DL 174 in 11/09 (was off statin) h tim LDL goal < 70 L abs 02/09: LDL 64 Trigs 84, a1c 5.4% * wants q6mo appt for now r epeat flp prior to next visit [facility] Her updated medication list for this problem includes: Crestor 10 Mg Oral Tablet (Rosuvastatin calcium) ..... Take one tablet by mouth daily Neo Yee Cardiology: m ild up to 30% lad on cath, trivial rca and cx cath 10/18/16 C oronary ca score 2021: 564, LAD 224, Cx 209, RCA 130 a spirin s tatin n ml ef 22 n eg nuc 22 m editerranean diet l ow dose beta manny * wants q6mo appt for now Neo Yee Cardiology: L abs 06/07 LDL 61, HDL 72. Cr .67 L DL 174 in 11/09 (was off statin) r esume crestor 10 for now, may need 20, may need zetia h tim LDL goal < 70 r echeck in 2 months Neo Yee Cardiology: m ild up to 30% lad on cath, trivial rca and cx cath 10/18/16 C oronary ca score 2021: 564, LAD 224, Cx 209, RCA 130 a spirin s tatin n ml ef in past p francine ex nuc to risk stratify r esume statin m editerranean diet l ow dose beta manny for now [facility]: q uit [facility]:Labs 06/07 LDL 61, HDL 72. Cr .67 [facility]: m ild up to 30% lad on cath, trivial rca and cx cath 10/18/16 a spirin s tatin n o angina n ml ef [facility]:quit Neo nelson DO Cardiology:119 10/04 r echeck panel t alked about whole 30 [facility]:mild up t o 30% lad on cath, trivial rca and cx cath 10/18/16 a spirin s tatin n o angina n ml ef [facility]: L DL 109 HDL 74 g iven coronary ca rec LDL < 70 n ow on statin recheck fall 2016 talked about whole 30 [facility]: c oronary calcium seen mainly lad m ild up to 30% lad on cath, trivial rca and cx cath 10/18/16 a spirin s tatin s top bb [facility]:coronary calcium seen mainly lad a spirin s tart statin b b b roderline stress test disucssed risks/benefits of med rx alone vs cath vs coronary ct angio she favors cath will scheduled [facility]:LDL 109 H DL 74 g iven coronary ca rec LDL < 70 d iet first may need statin recheck summer 2016. [facility]: i ndeterminate ecg portion of stress test a bnormal coronary ca c ath rec [facility] DO Cardiology Neo Jose Rocky oamr DO Cardiology:coronary calcium seen mainly lad a spirin s tart statin b b b roderline stress test c ath [facility]ee DO Cardiology:indetermi catrachito ecg portion of stress test s x dont sound typical of cardiac sx w ill do calcium scan if abnormal can do angiogram Neo Jose Yee DO Date Name LIPID PANEL COMPREHENSIVE METABO LIC PANEL, W/EGFR COMPREHENSIVE METABO LIC PANEL, W/EGFR LIPID PANEL EKG COMPREHENSIVE METABO LIC PANEL, W/EGFR LIPID PANEL CRP, high sensitivit y COMPREHENSIVE METABO LIC PANEL, W/EGFR Lipoprotein (a) LIPID PANEL LIPID PANEL LIPID PANEL HEMOGLOBIN A1c Complete Echo Stress Exercise Card iolite EKG CT, Coronary Calcium Score LIPID PANEL COMPREHENSIVE METABO LIC PANEL, W/EGFR LIPID PANEL C-REACTIVE PROTEIN COMPREHENSIVE METABO LIC PANEL, W/EGFR C-REACTIVE PROTEIN LIPID PANEL PROTHROMBIN TIME WIT H INR CBC (INCLUDES DIFF/P LT) PROBNP, N TERMINAL BASIC METABOLIC PANE L W/EGFR HISTORY OF PROCEDURES Procedure Date Procedure Name Provider Procedure Notes S tatus Complex e/m visit add on Neo Jose Joselito DO completed EKG Neo Yee DO completed EKG Neo Yee DO completed EKG Neo Kwanon Joselito DO completed EKG Neo Jose Yee DO completed EKG Neo Jose Joselito DO completed CT- Coronary CA score Neo Lisa Yee DO completed EKG Neo Jose Yee DO completed EKG Neo Jose Joselito DO completed SNOMED-CT: [id number] Current Medications Documented Neo Jose Ruizra DO completed SNOMED-CT: [id number] Current Medications Documented Neo Jose Joselito DO completed EKG Neo Jose Joselito DO completed EKG Neo Jose Joselito DO completed SNOMED-CT: [id number] Current Medications Documented Neo Jose Joselito DO completed EKG Neo Jose Joselito DO completed SNOMED-CT: [id number] Current Medications Documented Neo Jose Joselito DO completed
== END 2024-05-05 14:20 | disposition home or self-care (01) ==
PROVIDERS: PCP Internal Medicine Geriatric Medicine; Visit Provider Internal Medicine Gastroenterology
PROC: 0DJD8ZZ Inspection of Lower Intestinal Tract, Via Natural or Artificial Opening Endoscopic (ICD-10-PCS; CPT 45378; principal; 2024-05-05 13:30)
DX: Z12.11 Encounter for screening for malignant neoplasm of colon (principal); K64.8 Other hemorrhoids; E78.5 Hyperlipidemia, unspecified; J44.9 Chronic obstructive pulmonary disease, unspecified; M48.00 Spinal stenosis, site unspecified; Z79.82 Long term (current) use of aspirin; Z98.890 Other specified postprocedural states; Z98.51 Tubal ligation status; Z98.891 History of uterine scar from previous surgery; Z86.0100 Personal history of colon polyps, unspecified; Z87.891 Personal history of nicotine dependence; Z80.3 Family history of malignant neoplasm of breast
CPT/HCPCS: 45378; J2003; J2704; J7120